=== PATIENT | male | born 1945 | race Caucasian/White ===

== ENCOUNTER 2017-11-27 16:41 | Emergency (ER) | payer MEDICARE, OTHER ==
[~2017-11-27] VITALS: Ht 167.6 cm; Wt 75.0 kg
[2017-11-27 16:43] VITALS: TEMP 98.3
[2017-11-27 17:21] LABS: BASO # 0.1 (0.0-0.2); BASO % 0.5 % (0.0-2.0); EOS # 0.2 (0.0-0.7); EOS % 1.7 % (0-4.0); GRAN # 6.1 (1.4-6.5); GRAN % 65.5 % (42.2-75.2); HEMATOCRIT 38.1 % (42.0-52.0); HEMOGLOBIN 12.5 g/dl (13.5-18.0); LYMPH # 2.3 (1.2-3.4); LYMPH % 24.7 % (20.0-51.0); MEAN CELL VOLUME 83 fl (80.0-100.0); MEAN CORPUSCULAR HEMOGLOBIN 27 pg (27.0-31.0); MEAN CORPUSCULAR HGB CONC 33 g/dl (33.0-37.0); MEAN PLATELET VOLUME 11.1 fl (7.4-10.4); MONO # 0.7 (0.1-0.6); MONO % 7.2 % (1.7-9.3); PLATELET COUNT 271 K/mm3 (130-400); RED BLOOD COUNT 4.59 M/mm3 (4.20-5.60)
[2017-11-27 17:25] LABS: PROTHROMBIN TIME 11.4 SECONDS (9.7-12.8)
[2017-11-27 17:35] LABS: D-DIMER < 200.00 ng/mLDDu (200-230)
[2017-11-27 17:43] LABS: ALANINE AMINOTRANSFERASE 30 U/L (21-72); ALBUMIN 3.7 gm/dL (3.5-5.0); ALKALINE PHOSPHATASE 52 U/L (50-136); ANION GAP 13 mmol/L (7-16); AST,SGOT 25 U/L (15-37); BILIRUBIN,TOTAL 0.5 mg/dL (0.0-1.0); BLOOD UREA NITROGEN 25 mg/dL (9-20); CALCIUM 8.3 mg/dL (8.4-10.2); CARBON DIOXIDE 20 mmol/L (22-30); CHLORIDE 106 mmol/L (98-107); CREATININE, serum 1.64 mg/dL (0.66-1.25); GLUCOSE 117 mg/dL (74-106); POTASSIUM 3.7 mmol/L (3.4-5.0); SODIUM 139 mmol/L (137-145); TOTAL PROTEIN 6.6 gm/dL (6.4-8.2)
[2017-11-27] MEDS ORDERED: LIPITOR20 MG PO (17:46)
[2017-11-27] MEDS ORDERED: ASPIRIN 81M81 MG/TA2 PO (17:47)
[2017-11-27] MEDS ORDERED: PRINIVIL20 MG PO (17:47)
[2017-11-27 18:00] LABS: TROPONIN-I < 0.012 ng/mL (0.000-0.034)
[2017-11-27 20:31] VITALS: BP 107/63; PULSE 60
== END 2017-11-27 20:31 | disposition home or self-care (01) ==
LOC: COL.ER 16:41 → EDBD 16:43 → COL.ER 16:43
PROVIDERS: Emergency Medicine
DX: E86.0 Dehydration (principal); R55 Syncope and collapse; I10 Essential (primary) hypertension; E78.5 Hyperlipidemia, unspecified; Z79.82 Long term (current) use of aspirin